=== PATIENT | male | born 1950 | race Caucasian/White ===

== ENCOUNTER 2017-04-25 03:20 | Inpatient (IN) | payer MEDICARE ==
[2017-04-25] VITALS (19 sets, daily range): BP systolic 101–159; BP diastolic 55–96; PULSE 76–132; RESP 17–36; TEMP 97.1–98.7; O2SAT 97–100
[~2017-04-25] VITALS: Ht 177.8 cm; Wt 75.0 kg
[~2017-04-25 03:20] MED LIST: ARIP20 PO; ASPI325T PO; DOCU1CAP39 PO; ENOX30P SQ; FOLI1 PO; GABA100C4 PO; HUMALOGP SQ; LANTUS2P SQ; LISI-357 PO; LORTA5 PO; MAPA325T6 PO; METF500 PO; METO25 PO; POLY119S PO; THIA100T PO; TRAZ50TA4 PO
[2017-04-25] MEDS ORDERED: ONDANSETRON HCL 4 MG/2 ML VIAL IV ONE (03:45)
[2017-04-25] MEDS ORDERED: POTASSIUM CHLOR 40 MEQ PREMIX 100 ML IV PRN ×4 (03:45→05:30)
[2017-04-25] MEDS ORDERED: POTASSIUM CHLOR 20 MEQ PREMIX 100 ML IV PRN ×11 (03:45→05:30)
[2017-04-25] MEDS ORDERED: SODIUM CHLOR 0.9% 1000 ML INJ 1,000 ML IV ONE ×2 (03:45)
[2017-04-25] MEDS ORDERED: INSULIN REGULAR (IV INFUSION) 100 UNITS in SODIUM CHLORIDE 0.9% INJ 99 ML IV PRN ×2 (03:45→05:30)
[2017-04-25] MEDS ORDERED: SODIUM BICARBONATE 8.4% SOLN 50 MEQ/50 ML VIAL IV PUSH PRN ×4 (03:45→05:30)
[2017-04-25] MEDS ORDERED: INSULIN HUMAN REGULAR 1,000 UNITS/10 ML VIAL IV PUSH ONE (03:45)
[2017-04-25] MEDS ORDERED: SODIUM PHOSPHATE INJ 15 MMOL in SODIUM CHLORIDE 0.9% INJ 100 ML IV PRN ×2 (03:45→05:30)
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
[2017-04-25] MEDS: SODIUM CHLOR 0.9% 1000 ML INJ 1,000 ML IV SCH ×4 (03:50→14:29)
[2017-04-25] MEDS ORDERED: CALCIUM GLUCONATE INJ 1 GM in SODIUM CHLORIDE 0.9% INJ 100 ML IV ONE (04:00)
[2017-04-25 04:02] LABS: ALBUMIN 2.7 GM/DL (3.4-5.0); ALT (GPT) 41 U/L (12-78); AST (GOT) 39 U/L (15-37); BICARBONATE 5.2 MEQ/L (21.0-32.0); BLOOD UREA NITROGEN 25 MG/DL (7-18); CALCIUM 8.5 MG/DL (8.5-10.1); CHLORIDE 91 MEQ/L (98-107); CREATININE 1.93 MG/DL (0.60-1.30); GLOMERULAR FILTRATION RATE 35 ML/MIN (>89); MAGNESIUM 1.9 MG/DL (1.5-2.5); SODIUM (NA) 133 MEQ/L (136-145)
[2017-04-25 04:03] LABS: AUTOMATED NEUTROPHIL # 18.4 TH/MM3 (1.8-7.7); BASOPHIL # 0.1 TH/MM3 (0-0.2); BASOPHIL % 0.5 % (0.0-2.0); EOSINOPHIL # 0.1 TH/MM3 (0-0.4); EOSINOPHIL % 0.4 % (0.0-4.0); HEMOGLOBIN 11.9 GM/DL (13.0-17.0); LYMPH % 6.3 % (9.0-44.0); LYMPHOCYTE # 1.3 TH/MM3 (1.0-4.8); MEAN CELL VOLUME 109.6 FL (80.0-100.0); MEAN CORPUSCULAR HEMOGLOBIN 32.5 PG (27.0-34.0); MEAN CORPUSCULAR HGB CONC 29.6 % (32.0-36.0); MEAN PLATELET VOLUME 8.6 FL (7.0-11.0); MONO % 3.3 % (0.0-8.0); MONOCYTE # 0.7 TH/MM3 (0-0.9); NEUT % 89.5 % (16.0-70.0); PLATELET COUNT 264 TH/MM3 (150-450); RED BLOOD COUNT 3.65 MIL/MM3 (4.50-5.90); RED CELL DISTRIBUTION WIDTH 18.3 % (11.6-17.2); WHITE BLOOD COUNT 20.5 TH/MM3 (4.0-11.0)
[2017-04-25 04:13] LABS: ALKALINE PHOSPHATASE 103 U/L (45-117); TOTAL PROTEIN 6.2 GM/DL (6.4-8.2); TROPONIN I 0.03 NG/ML (0.02-0.05)
[2017-04-25 04:22] LABS: GLUCOSE,RANDOM 709 MG/DL (74-106)
[2017-04-25 04:37] LABS: BACTERIA, URINE OCC /hpf; BILIRUBIN, URINE NEG (NEG); BLOOD, URINE NEG (NEG); GLUCOSE,URINE 1000 mg/dL (NEG); HYALINE CAST, URINE 3 /lpf (RARE); KETONE, URINE 80 mg/dL (NEG); MUCUS URINE FEW /lpf (OCC); NITRITE,URINE NEG (NEG); URINE COLOR LIGHT-YELLOW (YELLW/STRAW); URINE LEUKOCYTE ESTERASE NEG (NEG)
--- NOTE | 2017-04-25 04:44 | RADRPT ---
EXAM DATE/TIME: 04/25/2017 04:01 [facility] COMPARISON: CHEST SINGLE AP, July 05, 2015, 5:50. INDICATIONS : Short of breath. MEDICAL HISTORY : Hepatitis C. Diabetes mellitus type II. SURGICAL HISTORY : None. ENCOUNTER: Initial ACUITY: 1 day PAIN SCORE: 0/10 LOCATION: Bilateral chest FINDINGS: A single view of the chest demonstrates the lungs to be symmetrically aerated without evidence of mas s, infiltrate or effusion. Incidental note of azygous lobe. The cardiomediastinal contours are unre markable. No tortuosity of the descending thoracic aorta. Cervical hardware plate. Stable deformit y left shoulder and upper lateral left ribs. CONCLUSION: The lungs are clear. Suhail Yin MD on April 25, 2017 at 4:42 Board Certified Radiologist. This report was verified electronically.
[2017-04-25] MEDS ORDERED: PIPERACIL-TAZO 3.375 GM PREMIX 50 ML IV ONE (05:00)
[2017-04-25] MEDS ORDERED: VANCOMYCIN INJ 1,000 MG in SODIUM CHLOR 0.9% 250 ML INJ 250 ML IV ONE (05:00)
[2017-04-25] MEDS ORDERED: SODIUM CHLOR 0.9% 1000 ML INJ 1,000 ML IV SCH (05:29)
[2017-04-25] MEDS ORDERED: DEXT 5%-NACL 0.9% 1000 ML INJ 1,000 ML IV SCH (05:29)
[2017-04-25] MEDS ORDERED: CHLORHEXIDINE GLUCONATE 2 % 1 PACK (2 CLOTHS) TOP PRN (05:30)
[2017-04-25] MEDS ORDERED: SENNOSIDES 8.6 MG TAB PO PRN (05:30)
[2017-04-25] MEDS ORDERED: ACETAMINOPHEN 325 MG TAB PO PRN ×2 (05:30)
[2017-04-25] MEDS ORDERED: LACTULOSE SYRUP 20 GM/30 ML CUP PO PRN (05:30)
[2017-04-25] MEDS ORDERED: SODIUM CHLORIDE 0.9% FLUSH 10 ML FLUSH IV FLUSH PRN (05:30)
[2017-04-25] MEDS ORDERED: RESP: ALBUTEROL 2.5 MG/IPRATROPIUM 0.5 MG NEB (PRN) INH (05:30)
[2017-04-25] MEDS ORDERED: MISCELLANEOUS NURSING INFORMATION XX SCH (05:30)
[2017-04-25] MEDS ORDERED: MAGNESIUM HYDROXIDE SUSP 30 ML CUP PO PRN (05:30)
[2017-04-25] MEDS ORDERED: BISACODYL 10 MG SUPP RECTAL PRN (05:30)
--- NOTE | 2017-04-25 05:41 | HHI.HP ---
HPI Service Critical Care Medicine Primary Care Physician Jean-Claude Reed, DO Admission Diagnosis DKA, leukocytosis Diagnosis: Travel History International Travel<30 Days: No Contact w/Intl Traveler <30 Da: No Traveled to Known Affected Are: No History of Present Illness 67 year old male presents with a history altered mentation noted at 2 AM by the [facility]pc staff when they went to check his blood sugar. The patient's blood sugar was noted to be critically high. They administered 10 units of insulin subcutaneously and called the physician commercial solar sales consultant. Given the patient's altered mentation he recommended that the patient be taken to the emergency department. Upon ambulance services arrival the patient was noted to be tachypneic with a critically high blood sugar. The patient was noted to have an end-tidal CO2 between 8 and 10. The patient's heart rate was noted to be 280 and he appeared to be and ventricular tachycardia. The patient spontaneously converted to a sinus rhythm. The patient continues to be altered. The initial workup in the emergency department show severe DKA and the patient is admitted to ICU. Review of Systems ROS Unable to obtain due to altered mental status Past Family Social History Allergies: Coded Allergies: No Known Allergies (Verified Allergy, Unknown, 04/25/17) Past Medical History Hypertension Diabetes History of subdural hemorrhage and subarachnoid hemorrhagein 2012 History of hepatitis Creports this was treated more than 10 years ago Past Surgical History Left femoral fracture IM rods Left knee surgery Halo placement: C6-C7 fracture subluxation with spinal cord injurystatus post anterior and posterior decompression and fusion Anterior cervical C5 to C6, and C6 to C7 ventral epidural hemorrhage evacuation Removal of anterior C5 to C7 cervical plate with replacement Removal of C5 to C6 and C6 to C7 interbody cages with replacement Reported Medications Reported Meds & Active Scripts Active [place] 5-325 mg (Hydrocodone-Acetaminophen 5-325 mg) 1 Tab 1 Tab PO Q8 PRN Trazodone Hcl (Trazodone HCl) 50 Mg Tab 50 Mg PO HS Abilify 20 mg (Aripiprazole) 20 Mg Tab 20 Mg PO HS 30 Days Metoprolol Tartrate 25 mg (Metoprolol Tartrate) 25 Mg Tab 25 Mg PO Q12HR 30 Days Lovenox (Enoxaparin Sodium) 30 Mg/0.3 Ml Inj 30 Mg SQ Q12H 30 Days Aspirin 325 Mg Tab (Aspirin) 325 Mg Tab 325 Mg PO DAILY 30 Days Reported Glucophage 500 mg (Metformin HCl) 500 Mg Tab 500 Mg PO BIDPC Mapap (Acetaminophen) 325 Mg Tab 650 Mg PO Q6H PRN Thiamine HCl 100 Mg Tab 100 Mg PO DAILY Miralax 119 Gm Bottle (Polyethylene Glycol) 119 Gm Powd 17 Gm PO DAILY 17 GRAMS = 1 TABLESPOON DISSOLVED IN 4 TO 8 [place] Lisinopril 5 mg (Lisinopril) 5 Mg Tab 5 Mg PO BID Humalog Insulin Supplemental Scale (Insulin Human Lispro) 100 Units/Ml Inj Unknown Dose SQ TIDACHS Low Dose Lispro Insulin Sliding Scale = Max dose at bedtime:( )units; Max dose at 3am:( ); blood sugars less than 70 take zero insulin units; blood sugars 150-199 take 1 unit; blood sugars 200-249 take 3 units; blood sugars 250-299 take 5 units; blood sugars 300-349 take 7 units; blood sugars greater than 349 take 9 units Lantus (Insulin Glargine) 100 Units/Ml Inj 27 Unit SQ DAILY Gabapentin 100 Mg Cap 200 Mg PO TID Folate 1 Mg Tab (Folic Acid) 1 Mg Tab 1 Mg PO DAILY Colace 100 Mg Cap (Docusate Sodium) 100 Mg Cap 100 Mg PO BID Active Ordered Medications Current Medications Medications (Trade) Dose Ordered Sig/Heri Route PRN Reason Start Time Stop Time Status Last Admin Dose Admin Sodium Chloride 1,000 ml @ 250 mls/hr Q4H IV 04/25/17 03:45 04/25/17 03:50 Dextrose/Sodium Chloride 1,000 ml @ 200 mls/hr Q5H IV 04/25/17 03:45 Insulin Human Regular 100 units/ Sodium Chloride 100 ml @ 6.5 mls/hr TITRATE PRN IV Blood Sugar Management 04/25/17 03:45 Potassium Chloride 100 ml @ 100 mls/hr Q1H PRN IV SEE LABEL COMMENTS 04/25/17 03:45 Potassium Chloride 100 ml @ 50 mls/hr Q2H PRN IV SEE LABEL COMMENTS 04/25/17 03:45 Potassium Chloride 100 ml @ 100 mls/hr Q1H PRN IV SEE LABEL COMMENTS 04/25/17 03:45 Potassium Chloride 100 ml @ 100 mls/hr Q1H PRN IV SEE LABEL COMMENTS 04/25/17 03:45 Potassium Chloride 100 ml @ 50 mls/hr Q2H PRN IV SEE LABEL COMMENTS 04/25/17 03:45 Potassium Chloride 100 ml @ 50 mls/hr Q2H PRN IV SEE LABEL COMMENTS 04/25/17 03:45 Potassium Chloride 100 ml @ 50 mls/hr Q2H PRN IV SEE LABEL COMMENTS 04/25/17 03:45 Potassium Chloride 100 ml @ 50 mls/hr Q2H PRN IV SEE LABEL COMMENTS 04/25/17 03:45 Sodium Bicarbonate (Sodium Bicarbonate 8.4% Inj) 100 meq UNSCH PRN IV PUSH SEE LABEL COMMENTS 04/25/17 03:45 Sodium Bicarbonate (Sodium Bicarbonate 8.4% Inj) 50 meq UNSCH PRN IV PUSH SEE LABEL COMMENTS 04/25/17 03:45 Sodium Phosphate 15 mmol/Sodium Chloride 105 ml @ 25 mls/hr UNSCH PRN IV SEE LABEL COMMENTS 04/25/17 03:45 Vancomycin HCl 1000 mg/Sodium Chloride 250 ml @ 250 mls/hr ONCE ONCE IV 04/25/17 05:00 04/25/17 05:59 Acetaminophen (Tylenol) 650 mg Q6H PRN PO MILD PAIN 04/25/17 05:30 UNV Aripiprazole (Abilify) 20 mg HS PO 04/25/17 21:00 UNV Aspirin (Aspirin) 325 mg DAILY PO 04/25/17 09:00 UNV Enoxaparin Sodium (Lovenox Inj) 30 mg Q12H SQ 04/25/17 05:30 UNV Folic Acid (Folate) 1 mg DAILY PO 04/25/17 09:00 UNV Gabapentin (Neurontin) 200 mg TID PO 04/25/17 09:00 UNV Metoprolol Tartrate (Lopressor) 25 mg Q12HR PO 04/25/17 09:00 UNV Thiamine HCl (Vitamin B1) 100 mg DAILY PO 04/25/17 09:00 UNV Trazodone HCl (Desyrel) 50 mg HS PO 04/25/17 21:00 UNV Sodium Chloride (NS Flush) 2 ml UNSCH PRN IV FLUSH FLUSH AFTER USING IV ACCESS 04/25/17 05:30 UNV Sodium Chloride (NS Flush) 2 ml BID IV FLUSH 04/25/17 09:00 UNV Acetaminophen (Tylenol) 650 mg Q6H PRN PO PAIN 1-5 AND/OR FEVER >101F 04/25/17 05:30 UNV Morphine Sulfate (Morphine Inj) 2 mg Q2H PRN IV PUSH PAIN SCALE 6 TO 10 04/25/17 05:30 UNV Famotidine (Pepcid Inj) 20 mg Q12HR IV PUSH 04/25/17 09:00 UNV Temazepam (Restoril) 15 mg HS PRN PO INSOMNIA 04/25/17 05:30 UNV Albuterol/ Ipratropium (Duoneb Neb) 1 ampule Q2HR NEB PRN INH WHEEZING 04/25/17 05:30 UNV Miscellaneous Information 1 Q361D XX 04/25/17 05:30 UNV Chlorhexidine Gluconate (Chlorhexidine 2% Cloth) 3 pack Taper DAILY@04 TOP 04/26/17 04:00 04/22/18 03:59 UNV Chlorhexidine Gluconate (Chlorhexidine 2% Cloth) 3 pack UNSCH PRN TOP HYGIENIC CARE 04/25/17 05:30 UNV Senna/Docusate Sodium (Araceli-Colace) 1 tab BID PO 04/25/17 09:00 UNV Magnesium Hydroxide (Milk Of Magnesia Liq) 30 ml Q12H PRN PO Mild constipation 04/25/17 05:30 UNV Sennosides (Senokot) 17.2 mg Q12H PRN PO Moderate constipation 04/25/17 05:30 UNV Bisacodyl (Dulcolax Supp) 10 mg DAILY PRN RECTAL SEVERE CONSITIPATION 04/25/17 05:30 UNV Lactulose (Lactulose Liq) 30 ml DAILY PRN PO SEVERE CONSITIPATION 04/25/17 05:30 UNV Sodium Chloride 1,000 ml @ 250 mls/hr Q4H IV 04/25/17 05:29 UNV Dextrose/Sodium Chloride 1,000 ml @ 200 mls/hr Q5H IV 04/25/17 05:29 UNV Insulin Human Regular 100 units/ Sodium Chloride 100 ml @ 6.5 mls/hr TITRATE PRN IV Blood Glucose Control 04/25/17 05:30 UNV Potassium Chloride 100 ml @ 100 mls/hr Q1H PRN IV SEE LABEL COMMENTS 04/25/17 05:30 UNV Potassium Chloride 100 ml @ 50 mls/hr Q2H PRN IV SEE LABEL COMMENTS 04/25/17 05:30 UNV Potassium Chloride 100 ml @ 100 mls/hr Q1H PRN IV SEE LABEL COMMENTS 04/25/17 05:30 UNV Potassium Chloride 100 ml @ 100 mls/hr Q1H PRN IV SEE LABEL COMMENTS 04/25/17 05:30 UNV Potassium Chloride 100 ml @ 50 mls/hr Q2H PRN IV SEE LABEL COMMENTS 04/25/17 05:30 UNV Potassium Chloride 100 ml @ 50 mls/hr Q2H PRN IV SEE LABEL COMMENTS 04/25/17 05:30 UNV Potassium Chloride 100 ml @ 50 mls/hr Q2H PRN IV SEE LABEL COMMENTS 04/25/17 05:30 UNV Potassium Chloride 100 ml @ 50 mls/hr Q2H PRN IV SEE LABEL COMMENTS 04/25/17 05:30 UNV Sodium Bicarbonate (Sodium Bicarbonate 8.4% Inj) 100 meq UNSCH PRN IV PUSH SEE LABEL COMMENTS 04/25/17 05:30 UNV Sodium Bicarbonate (Sodium Bicarbonate 8.4% Inj) 50 meq UNSCH PRN IV PUSH SEE LABEL COMMENTS 04/25/17 05:30 UNV Sodium Phosphate 15 mmol/Sodium Chloride 105 ml @ 25 mls/hr UNSCH PRN IV SEE LABEL COMMENTS 04/25/17 05:30 UNV Family History No family history significant for coronary artery disease or malignancy Social History Denies smoking/alcohol abuse/drug abuse. Physical Exam Vital Signs Vital Signs Date Time Temp Pulse Resp B/P (MAP) Pulse Ox O2 Delivery O2 Flow Rate FiO2 04/25/17 03:40 126 30 159/74 (102) 100 Room Air 04/25/17 03:30 129 30 157/87 (110) 100 Room Air 04/25/17 03:24 125 33 143/96 (112) 100 Physical Exam GENERAL: Well-nourished, well-developed patient. SKIN: Warm and dry. HEAD: Normocephalic. EYES: No scleral icterus. No injection or drainage. NECK: Supple, trachea midline. No JVD or lymphadenopathy. CARDIOVASCULAR: Regular rate and rhythm without murmurs, gallops, or rubs. RESPIRATORY: Breath sounds equal bilaterally. No accessory muscle use. GASTROINTESTINAL: Abdomen soft, non-tender, nondistended. MUSCULOSKELETAL: No cyanosis, or edema. BACK: Large sacral decubitus wound. NEURO EXAM: The patient is confused on examination. He has difficulty following simple commands like opening his mouth. He is spontaneously moving all extremities equally with 5/5 strength. The patient is oriented to to his name only. Laboratory Laboratory Tests Test 04/25/17 03:20 04/25/17 03:30 04/25/17 03:45 04/25/17 04:06 Blood Gas Puncture Site IV Blood Gas Patient Temperature 98.6 Venous Blood pH 7.06 Venous Blood Partial Pressure CO2 14 Venous Blood Partial Pressure O2 43 Venous Blood HCO3 4 Venous Blood Oxygen Saturation 51 Venous Blood Oxygen Content 8.2 Venous Blood Base Excess -24.8 Oxygen Delivery Device ROOM AIR Blood Gas Inspired Oxygen 21 Bedside Hemoglobin 12.2 Bedside Hematocrit 36.0 Bedside Sodium 129 Blood Urea Nitrogen 25 Creatinine 1.93 Random Glucose 709 Total Protein 6.2 Albumin 2.7 Calcium Level 8.5 Magnesium Level 1.9 Alkaline Phosphatase 103 Aspartate Amino Transf (AST/SGOT) 39 Alanine Aminotransferase (ALT/SGPT) 41 Total Bilirubin 1.0 Sodium Level 133 Potassium Level 6.0 Chloride Level 91 Carbon Dioxide Level 5.2 Bedside Potassium 5.9 Bedside Chloride 99 Anion Gap 37 Bedside Blood Urea Nitrogen 25 Bedside Creatinine 1.4 Estimat Glomerular Filtration Rate 35 Bedside Glucose GREATER THAN 700 Total Creatine Kinase 286 Creatine Kinase MB 8.6 Troponin I 0.03 B-Hydroxybutyrate 10.31 White Blood Count 20.5 Red Blood Count 3.65 Hemoglobin 11.9 Hematocrit 40.0 Mean Corpuscular Volume 109.6 Mean Corpuscular Hemoglobin 32.5 Mean Corpuscular Hemoglobin Concent 29.6 Red Cell Distribution Width 18.3 Platelet Count 264 Mean Platelet Volume 8.6 Neutrophils (%) (Auto) 89.5 Lymphocytes (%) (Auto) 6.3 Monocytes (%) (Auto) 3.3 Eosinophils (%) (Auto) 0.4 Basophils (%) (Auto) 0.5 Neutrophils # (Auto) 18.4 Lymphocytes # (Auto) 1.3 Monocytes # (Auto) 0.7 Eosinophils # (Auto) 0.1 Basophils # (Auto) 0.1 CBC Comment AUTO DIFF Differential Comment AUTO DIFF CONFIRMED B-Type Natriuretic Peptide 438 Urine Color LIGHT-YELLOW Urine Turbidity CLEAR Urine pH 5.0 Urine Specific [place] 1.013 Urine Protein NEG Urine Glucose (UA) 1000 Urine Ketones 80 Urine Occult Blood NEG Urine Nitrite NEG Urine Bilirubin NEG Urine Urobilinogen LESS THAN 2.0 Urine Leukocyte Esterase NEG Urine RBC 1 Urine WBC 1 Urine Bacteria OCC Urine Hyaline Casts 3 Urine Mucus FEW Microscopic Urinalysis Comment CULT NOT INDICATED Result Diagram: 04/25/17 0345 04/25/17329 Imaging Last 24 hours Impressions Chest X-Ray 04/25/17332 Signed Impressions: Service Date/Time: Tuesday, April 25, 2017 04:01 - CONCLUSION: The lungs are clear. MD Ad Cuevas VTE Risk Assessment Caprini VTE Risk Assessment: Mod/High Risk (score >= 2) Caprini Risk Assessment Model Point Value = 1 Point Value = 2 Point Value = 3 Point Value = 5 Age 41-60 Minor surgery BMI > 25 kg/m2 Swollen legs Varicose veins or History of unexplained or recurrent spontaneous Oral contraceptives or hormone replacement Sepsis (< 1 month) Serious lung disease, including pneumonia (< 1 month) Abnormal pulmonary function Acute myocardial infarction Congestive heart failure (< 1 month) History of inflammatory bowel disease Medical patient at bed rest Age 61-74 Arthroscopic surgery Major open surgery (> 45 min) Laparoscopic surgery (> 45 min) Malignancy Confined to bed (> 72 hours) Immobilizing plaster cast Central venous access Age >= 75 History of VTE Family history of VTE Factor V Leiden Prothrombin [id number] Lupus anticoagulant Anticardiolipin antibodies Elevated serum homocysteine Heparin-induced thrombocytopenia Other congenital or acquired thrombophilia Stroke (< 1 month) Elective arthroplasty Hip, pelvis, or leg fracture Acute spinal cord injury (< 1 month) Prophylaxis Regimen Total Risk Factor Score Risk Level Prophylaxis Regimen 0-1 Low Early ambulation 2 Moderate Order ONE of the following: *Sequential Compression Device (SCD) *Heparin 5000 units SQ BID 3-4 Higher Order ONE of the following medications: *Heparin 5000 units SQ TID *Enoxaparin/Lovenox 40 mg SQ daily (WT < 150 kg, CrCl > 30 mL/min) *Enoxaparin/Lovenox 30 mg SQ daily (WT < 150 kg, CrCl > 10-29 mL/min) *Enoxaparin/Lovenox 30 mg SQ BID (WT < 150 kg, CrCl > 30 mL/min) AND/OR *Sequential Compression Device (SCD) 5 or more Highest Order ONE of the following medications: *Heparin 5000 units SQ TID (Preferred with Epidurals) *Enoxaparin/Lovenox 40 mg SQ daily (WT < 150 kg, CrCl > 30 mL/min) *Enoxaparin/Lovenox 30 mg SQ daily (WT < 150 kg, CrCl > 10-29 mL/min) *Enoxaparin/Lovenox 30 mg SQ BID (WT < 150 kg, CrCl > 30 mL/min) AND *Sequential Compression Device (SCD) Assessment and Plan Assessment and Plan DKA - IV insulin per protocol - Series chemistry profile - Potassium replacement - Sodium bicarbonate when necessary - Panculture - CXR negative - Series of troponins and EKGs Hypertension - Metoprolol - Hold lisinopril due to acute kidney injury Acute Renal failure - IV hydration - Monitor creatinine and electrolytes level - Strict I's and O's - CT abdomen pelvis pending - consider ultrasound of kidneys based on results Sacral Decubitus - Wound care consult DVT GI prophylaxis - Teds SCDs - Subcutaneous heparin - Pepcid Critical Care: The total critical care time was 35 minutes. Time to perform other separately billable procedures was not included in the critical care time. Basim Causey MD Apr 25, 2017 05:41 Alfredo Craig MD Apr 25, 2017 09:00
--- NOTE | 2017-04-25 06:22 | RADRPT ---
EXAM DATE/TIME: 04/25/2017 05:44 [facility] COMPARISON: No previous studies available for comparison. INDICATIONS : Abdomen pain. ORAL CONTRAST: No oral contrast ingested. RADIATION DOSE: 10.21 CTDIvol (mGy) MEDICAL HISTORY : Cardiovascular disease. Hypertension. UTI; Liver disease. SURGICAL HISTORY : None. ENCOUNTER: Initial ACUITY: 1 day PAIN SCALE: 3/10 LOCATION: Bilateral abdomen TECHNIQUE: Volumetric scanning of the abdomen and pelvis was performed. Using automated exposure control and ad justment of the mA and/or kV according to patient size, radiation dose was kept as low as reasonably achievable to obtain optimal diagnostic quality images. DICOM format image data is available electro nically for review and comparison. FINDINGS: There is motion degradation of the upper abdominal images. The study is still of diagnostic quality. There is a tiny right pleural effusion measuring 1.2 cm. Moderate amount of ascites in the upper a bdomen, tracking down the paracolic gutters bilaterally and with a moderate amount of fluid in the pe lvis. No dilated loops of small or large bowel. The liver, gallbladder, spleen, kidneys, pancreas, adrenal glands, and aorta are unremarkable for noncontrast technique. Small catheter within the urin melvina bladder. Osseous structures are grossly intact. Left femoral intramedullary merline and intratrocha nteric nail. CONCLUSION: Moderate amount of ascites in the abdomen and pelvis and tiny right pleural effusion. Suhail Yin MD on April 25, 2017 at 6:18 Board Certified Radiologist. This report was verified electronically.
[2017-04-25 07:29] LABS: LACTIC ACID SEPSIS PROTOCOL 10.7 mmol/L (0.4-2.0)
[2017-04-25 08:39] LABS: INTERNATIONAL NORMALIZED RATIO 1.3 RATIO; PROTHROMBIN TIME - PATIENT 13.1 SEC (9.8-11.6)
[2017-04-25] MEDS: DEXT 5%-NACL 0.9% 1000 ML INJ 1,000 ML IV SCH ×3 (08:43→18:49)
--- NOTE | 2017-04-25 08:44 | EKG ---
Date Performed: 04/25/2017 Time Performed: 03:31:32 PTAGE: 67 years EKG: SINUS TACHYCARDIA WITH FIRST DEGREE AV BLOCK BASELINE ARTEFACT ABNORMAL ECG NO PREVIOUS TRACING DOCTOR: Sreekanth Herring Interpretating Date/Time 04/25/2017 08:25:23
[2017-04-25] MEDS ORDERED: SODIUM CHLORIDE 0.9% FLUSH 10 ML FLUSH IV FLUSH SCH (09:00)
[2017-04-25] MEDS: GABAPENTIN 100 MG CAP PO SCH ×3 (09:22→18:50)
[2017-04-25] MEDS: METOPROLOL TARTRATE 25 MG TAB PO SCH ×2 (09:23→23:00)
[2017-04-25] MEDS: ASPIRIN 325 MG TAB PO SCH (09:23)
[2017-04-25] MEDS: FOLIC ACID 1 MG TAB PO SCH (09:23)
[2017-04-25] MEDS: THIAMINE HCL 100 MG TAB PO SCH (09:23)
[2017-04-25] MEDS: DOCUSATE SODIUM 50 MG/SENNA 8.6 MG TAB PO SCH ×2 (09:23→23:00)
[2017-04-25] MEDS: ENOXAPARIN SODIUM 30 MG/0.3 ML SYRINGE SQ SCH ×2 (09:23→22:30)
[2017-04-25] MEDS: FAMOTIDINE 20 MG/2 ML VIAL IV PUSH SCH ×2 (09:24→20:59)
[2017-04-25 12:03] LABS: CALCIUM 8.3 MG/DL (8.5-10.1); CREATININE 1.65 MG/DL (0.60-1.30); MAGNESIUM 1.7 MG/DL (1.5-2.5); PHOSPHORUS 2.1 MG/DL (2.5-4.9)
[2017-04-25] MEDS: POTASSIUM CHLOR 20 MEQ PREMIX 100 ML IV PRN ×2 (12:25→14:35)
[2017-04-25 14:07] LABS: BICARBONATE 22.1 MEQ/L (21.0-32.0); CREATININE 1.63 MG/DL (0.60-1.30); MAGNESIUM 1.7 MG/DL (1.5-2.5)
--- NOTE | 2017-04-25 14:37 | EKG ---
Date Performed: 04/25/2017 Time Performed: 12:44:22 PTAGE: 67 years EKG: Sinus rhythm NORMAL ECG PREVIOUS TRACING : 04/25/2017 03.31 Compared to previous tracing, heart rate has decreased. DOCTOR: Sreekanth Herring Interpretating Date/Time 04/25/2017 14:37:06
[2017-04-25 17:04] LABS: BICARBONATE 27.2 MEQ/L (21.0-32.0); BLOOD UREA NITROGEN 21 MG/DL (7-18); CALCIUM 7.5 MG/DL (8.5-10.1); CHLORIDE 108 MEQ/L (98-107); GLOMERULAR FILTRATION RATE 60 ML/MIN (>89); GLUCOSE,RANDOM 146 MG/DL (74-106); MAGNESIUM 1.5 MG/DL (1.5-2.5); PHOSPHORUS 1.5 MG/DL (2.5-4.9); SODIUM (NA) 143 MEQ/L (136-145)
[2017-04-25 17:14] LABS: CALCIUM 7.5 MG/DL (8.5-10.1); CREATININE 1.21 MG/DL (0.60-1.30); MAGNESIUM 1.5 MG/DL (1.5-2.5); PHOSPHORUS 1.5 MG/DL (2.5-4.9)
--- NOTE | 2017-04-25 19:38 | HHI.CCPN ---
Subjective Remarks/Hospital Course 67 year old male presents with a history altered mentation noted at 2 AM by the alf staff when they went to check his blood sugar. The patient's blood sugar was noted to be critically high. They administered 10 units of insulin subcutaneously and called the physician exceptional children teacher. Given the patient's altered mentation he recommended that the patient be taken to the emergency department. Upon ambulance services arrival the patient was noted to be tachypneic with a critically high blood sugar. The patient was noted to have an end-tidal CO2 between 8 and 10. The patient's heart rate was noted to be 280 and he appeared to be and ventricular tachycardia. The patient spontaneously converted to a sinus rhythm. The patient continues to be altered. The initial workup in the emergency department show severe DKA and the patient is admitted to ICU. 04/25 1930 hours: Bicarb corrected, gap closed, glucose controlled. D/C insulin gtt, d/c D5 iv fluid. Start levemir hs, feed CC diet. Add SSI. Objective Vital Signs Date Time Temp Pulse Resp B/P (MAP) Pulse Ox O2 Delivery O2 Flow Rate FiO2 04/25/17 14:32 98 Room Air 04/25/17 14:00 79 04/25/17 12:00 98.0 17 116/61 (79) 04/25/17 07:36 2.00 Intake and Output 04/25/17 04/25/17 04/26/17 08:00 16:00 00:00 Intake Total 2480 ml 1300 ml Balance 2480 ml 1300 ml Result Diagram: 04/25/17 0345 04/25/17 1546 Other Results Laboratory Tests Test 04/25/17 03:20 Blood Gas Puncture Site IV Blood Gas Patient Temperature 98.6 Venous Blood pH 7.06 (7.360-7.400) Venous Blood Partial Pressure CO2 14 mmHg (44-48) Venous Blood Partial Pressure O2 43 mmHg (35-40) Venous Blood HCO3 4 mmol/L (22-26) Venous Blood Oxygen Saturation 51 % (70-76) Venous Blood Oxygen Content 8.2 Vol % (9.0-17.0) Venous Blood Base Excess -24.8 mmol/L (-2-2) Oxygen Delivery Device ROOM AIR Blood Gas Inspired Oxygen 21 % Imaging Last 24 hours Impressions Chest X-Ray 04/25/17 0333 Signed Impressions: Service Date/Time: Tuesday, April 25, 2017 04:01 - CONCLUSION: The lungs are clear. Suhail Yin MD Objective Remarks GENERAL: Elderly, frail patient. SKIN: Warm and dry. HEAD: Normocephalic. EYES: No scleral icterus. No injection or drainage. NECK: Supple, trachea midline. CARDIOVASCULAR: Regular rate and rhythm without murmurs, gallops, or rubs. RESPIRATORY: Breath sounds equal bilaterally. No accessory muscle use. GASTROINTESTINAL: Abdomen soft, non-tender, nondistended. BS active MUSCULOSKELETAL: No cyanosis, or edema. Well perfused. BACK: Large sacral decubitus wound. NEURO EXAM: Conversant. Alert. He is spontaneously moving all extremities equally with 5/5 strength. The patient is oriented to to his name only. A/P Assessment and Plan DKA - IV insulin per protocol -> convert to levemir and SSI - Series chemistry profile - Potassium replacement - Sodium bicarbonate when necessary - Panculture - CXR negative - Series of troponins and EKGs Hypertension - Metoprolol - Hold lisinopril due to acute kidney injury Acute Renal failure - IV hydration - Monitor creatinine and electrolytes level - Strict I's and O's - CT abdomen pelvis pending - consider ultrasound of kidneys based on results Sacral Decubitus - Wound care consult DVT GI prophylaxis - Teds SCDs - Subcutaneous heparin - Pepcid Overall impression: DKA resolved. Hungry. Feed. Have wound care nurse evaluate sacral decubitus and make recommendations. Try to get back to SNF. Alfredo Craig MD Apr 25, 2017 19:38
[2017-04-25] MEDS ORDERED: GLUCAGON 1 MG/ML VIAL OTHER PRN (19:45)
[2017-04-25] MEDS ORDERED: DEXTROSE 50% IN WATER 50 ML VIAL(D50) IV PUSH PRN (19:45)
[2017-04-25] MEDS: MORPHINE SULFATE 2 MG/ML INJ IV PUSH PRN ×2 (20:59→23:00)
[2017-04-25] MEDS: INSULIN DETEMIR 100 UNITS/ML VIAL SQ SCH ×2 (21:00→22:31)
[2017-04-25] MEDS: NS + KCL 20 MEQ INJ 1,000 ML IV SCH (21:00)
[2017-04-25] MEDS ORDERED: TEMAZEPAM 15 MG CAP PO PRN (21:00)
[2017-04-25] MEDS: INSULIN ASPART SUPPLEMENTAL SCALE SQ SCH (22:31)
[2017-04-25 22:35] LABS: HEMOGLOBIN A1C 6.4 % (4.3-6.0)
[2017-04-25] MEDS: traZODone HCL 50 MG TAB PO SCH (23:00)
[2017-04-26] VITALS (11 sets, daily range): BP systolic 106–177; BP diastolic 56–99; PULSE 60–87; RESP 12–20; TEMP 97.2–98.3; O2SAT 94–97
[2017-04-26] LABS: BICARBONATE 18.7 MEQ/L (21.0-32.0); CALCIUM 7.9 MG/DL (8.5-10.1); CREATININE 1.1 MG/DL (0.60-1.30); MAGNESIUM 1.5 MG/DL (1.5-2.5); PHOSPHORUS 1.8 MG/DL (2.5-4.9)
[2017-04-26] MEDS: NS + KCL 20 MEQ INJ 1,000 ML IV SCH ×3 (02:10→08:50)
[2017-04-26] MEDS: MORPHINE SULFATE 2 MG/ML INJ IV PUSH PRN (03:53)
[2017-04-26] MEDS: CHLORHEXIDINE GLUCONATE 2 % 1 PACK (2 CLOTHS) TOP SCH (04:00)
[2017-04-26 06:18] LABS: INTERNATIONAL NORMALIZED RATIO 1.3 RATIO; PROTHROMBIN TIME - PATIENT 13.6 SEC (9.8-11.6)
[2017-04-26 06:32] LABS: ALBUMIN 1.8 GM/DL (3.4-5.0); ALKALINE PHOSPHATASE 74 U/L (45-117); ALT (GPT) 27 U/L (12-78); AST (GOT) 30 U/L (15-37); BICARBONATE 24.8 MEQ/L (21.0-32.0); BLOOD UREA NITROGEN 19 MG/DL (7-18); CALCIUM 7.5 MG/DL (8.5-10.1); CHLORIDE 108 MEQ/L (98-107); CREATININE 1.09 MG/DL (0.60-1.30); GLOMERULAR FILTRATION RATE 67 ML/MIN (>89); GLUCOSE,RANDOM 138 MG/DL (74-106); MAGNESIUM 1.6 MG/DL (1.5-2.5); PHOSPHORUS 1.6 MG/DL (2.5-4.9); SODIUM (NA) 141 MEQ/L (136-145); TOTAL BILIRUBIN ADULT 0.4 MG/DL (0.2-1.0); TOTAL PROTEIN 4.4 GM/DL (6.4-8.2)
[2017-04-26] MEDS: INSULIN ASPART SUPPLEMENTAL SCALE SQ SCH ×4 (08:00→21:00)
[2017-04-26] MEDS: FAMOTIDINE 20 MG/2 ML VIAL IV PUSH SCH (08:56)
[2017-04-26] MEDS: ENOXAPARIN SODIUM 30 MG/0.3 ML SYRINGE SQ SCH ×2 (08:56→20:00)
[2017-04-26] MEDS: DOCUSATE SODIUM 50 MG/SENNA 8.6 MG TAB PO SCH (08:57)
[2017-04-26] MEDS: THIAMINE HCL 100 MG TAB PO SCH (08:57)
[2017-04-26] MEDS: ASPIRIN 325 MG TAB PO SCH (08:57)
[2017-04-26] MEDS: METOPROLOL TARTRATE 25 MG TAB PO SCH (08:57)
[2017-04-26] MEDS: FOLIC ACID 1 MG TAB PO SCH (08:57)
[2017-04-26] MEDS: GABAPENTIN 100 MG CAP PO SCH ×3 (08:57→17:35)
[2017-04-26] MEDS: INSULIN DETEMIR 100 UNITS/ML VIAL SQ SCH ×2 (09:00→21:00)
--- NOTE | 2017-04-26 10:55 | PD.WCN.NOT ---
Wound Consult Description: Wound consult ordered by for chronic sacral wound Communicated with: Margarita MCDONALD [place], Dr.Samuel Funes Recommendation: 1. Reposition patient every 2 hours for comfort and offloading.Please do not use cotton underpads only UltraSorb moisture wicking. 2. Apply Santyl 2mm thick to wound base making contact with all open tissue.( DO NOT USE WOUND CLEANSER WITH SANTYL)Skin prep periwound 3. Cover with moisten gauze secure with ABD or boarder gauze change dressing daily or as needed for dislodgement/exudate. 4. Follow up with out patient wound center Additional Information: Patient was seen today on by administrative underwriter and Margarita JAVIER for assessment of chronic sacral wound.Patient alert and oriented x3 sitting in chair upon writers arrival.Patient required min assistance to transfer into bed.Patient was reposition to left side with assistance of Margairta MCDONALD.Dressing removed from sacral region to reveal a unstageable pressure injury measuring 9.6cm x 12.9cm x 0.3cm. Wound edges are even with wound base irregular in shape.Wound base extents from sacral region to upper bilateral buttocks.Wound base is ~65% adhered yellow slough ~25% pink non granular tissue ~10% beefy red granulation noted to 10 O'clock region of wound.moderate serosanguineous drainage noted to prior dressing with faint odor.Wound cleansed with normal saline pat dry moistened gauze applied to wound base and covered with boarder gauze till Santyl available Margarita MCDONALD will change dressing when Santyl arrives.Cotton underpad removed from under patient to reduce moister/heat.Patient tolerated wound care well.Patient was repositioned to left side with pillows for comfort/ offloading. Brennen Malloy [facility] Apr 26, 2017 10:55
[2017-04-26] MEDS: COLLAGENASE OINT 30 GM TUBE TOPICAL SCH (13:27)
--- NOTE | 2017-04-26 15:46 | HHI.PR ---
Subjective Remarks Patient is in good spirits today, says he feels fine. He states that he has had a few hospitalizations within recent weeks for DKA. Objective Vitals Vital Signs Date Time Temp Pulse Resp B/P (MAP) Pulse Ox O2 Delivery O2 Flow Rate FiO2 04/26/17 14:00 61 04/26/17 12:00 60 04/26/17 12:00 98.2 60 15 106/67 (80) 96 04/26/17 10:00 108/68 (81) 04/26/17 10:00 63 04/26/17 08:00 68 04/26/17 08:00 98.1 68 20 177/99 (125) 94 04/26/17 07:00 94 Room Air 04/26/17 06:00 67 04/26/17 04:00 63 04/26/17 04:00 98.2 63 12 129/60 (83) 97 04/26/17 03:58 11 04/26/17 02:00 73 04/26/17 00:00 87 04/26/17 00:00 98.0 83 14 110/56 (74) 94 04/25/17 22:00 87 04/25/17 20:00 98.2 78 18 133/62 (85) 97 04/25/17 20:00 78 04/25/17 19:00 97 Room Air 04/25/17 18:00 83 04/25/17 16:00 98.7 82 25 101/55 (70) 97 04/25/17 16:00 82 I/O 04/25/17 04/25/17 04/25/17 04/26/17 04/26/17 04/26/17 07:00 15:00 23:00 07:00 15:00 23:00 Intake Total 2190 ml 1710 ml 240 ml Output Total 600 ml 700 ml Balance 2190 ml 1110 ml -460 ml Intake Oral 360 ml 240 ml IV Total 2190 ml 1350 ml Output Urine Total 600 ml 700 ml # Bowel Movements 0 Result Diagram: 04/25/17 0345 04/26/17 0531 Objective Remarks GENERAL: Well-nourished, well-developed patient. SKIN: Sacral wound examined by wound care nurse HEAD: Normocephalic. EYES: No scleral icterus. No injection or drainage. NECK: Supple, trachea midline. No JVD or lymphadenopathy. CARDIOVASCULAR: Regular rate and rhythm without murmurs, gallops, or rubs. RESPIRATORY: Breath sounds equal bilaterally. No accessory muscle use. GASTROINTESTINAL: Abdomen soft, non-tender, nondistended. EXTREMITIES: No cyanosis, or edema. NEUROLOGICAL: Awake, alert, and oriented x 3. Non-focal. A/P Problem List: (1) DKA (diabetic ketoacidoses) ICD Code: E13.10 - Other specified diabetes mellitus with ketoacidosis without coma Status: Acute (2) Dehydration ICD Code: E86.0 - Dehydration Status: Acute Assessment and Plan DKA (type 2 diabetes) Patient has responded well to IV insulin protocol Olivares cultures are thus far negative, chest x-ray was negative Consider sacral wound Continue with diabetic diet, Accu-Cheks with sliding scale insulin coverage Acute renal failure Resolved with IV fluid hydration and correction of DKA Hypertension Continue with metoprolol Lisinopril held due to acute kidney injury, may resume after discharge DVT prophylaxis Heparin Problem Qualifiers (1) DKA (diabetic ketoacidoses): Qualified Codes: E10.10 - Type 1 diabetes mellitus with ketoacidosis without coma Fred Funes MD Apr 26, 2017 15:45
[2017-04-26 16:28] LABS: AUTOMATED NEUTROPHIL # 3.1 TH/MM3 (1.8-7.7); BASOPHIL % 0.7 % (0.0-2.0); EOSINOPHIL # 0.1 TH/MM3 (0-0.4); EOSINOPHIL % 3.1 % (0.0-4.0); HEMATOCRIT 29.7 % (39.0-51.0); LYMPH % 25.1 % (9.0-44.0); LYMPHOCYTE # 1.2 TH/MM3 (1.0-4.8); MEAN CELL VOLUME 95.8 FL (80.0-100.0); MEAN CORPUSCULAR HEMOGLOBIN 32.4 PG (27.0-34.0); MEAN CORPUSCULAR HGB CONC 33.8 % (32.0-36.0); MEAN PLATELET VOLUME 8.2 FL (7.0-11.0); MONO % 4.1 % (0.0-8.0); MONOCYTE # 0.2 TH/MM3 (0-0.9); PLATELET COUNT 85 TH/MM3 (150-450); RED CELL DISTRIBUTION WIDTH 16.2 % (11.6-17.2)
[2017-04-26 16:53] LABS: BICARBONATE 25.2 MEQ/L (21.0-32.0); CALCIUM 7.5 MG/DL (8.5-10.1); CREATININE 0.79 MG/DL (0.60-1.30); MAGNESIUM 1.6 MG/DL (1.5-2.5)
[2017-04-26 16:56] LABS: PHOSPHORUS 1.5 MG/DL (2.5-4.9)
[2017-04-26 18:12] LABS: WHITE BLOOD COUNT 4.6 TH/MM3 (4.0-11.0)
[2017-04-27] VITALS: BP 112/73; PULSE 84; RESP 20; TEMP 97; O2SAT 98
[2017-04-27] MEDS: FAMOTIDINE 20 MG/2 ML VIAL IV PUSH SCH ×3 (00:05→23:37)
[2017-04-27] MEDS: traZODone HCL 50 MG TAB PO SCH ×2 (00:07→23:29)
[2017-04-27] MEDS: METOPROLOL TARTRATE 25 MG TAB PO SCH ×3 (00:07→23:29)
[2017-04-27] MEDS: DOCUSATE SODIUM 50 MG/SENNA 8.6 MG TAB PO SCH ×3 (00:07→21:00)
[2017-04-27 04:00] VITALS: BP 106/63; PULSE 66; RESP 18; TEMP 98.7; O2SAT 95
[2017-04-27] MEDS: CHLORHEXIDINE GLUCONATE 2 % 1 PACK (2 CLOTHS) TOP SCH (04:00)
[2017-04-27] MEDS: INSULIN ASPART SUPPLEMENTAL SCALE SQ SCH ×4 (08:00→23:31)
[2017-04-27 08:09] VITALS: BP 121/79; PULSE 65; RESP 20; TEMP 98; O2SAT 98
[2017-04-27] MEDS: INSULIN DETEMIR 100 UNITS/ML VIAL SQ SCH ×2 (09:00→23:31)
[2017-04-27] MEDS: COLLAGENASE OINT 30 GM TUBE TOPICAL SCH (09:32)
[2017-04-27] MEDS: GABAPENTIN 100 MG CAP PO SCH ×3 (09:55→18:00)
[2017-04-27] MEDS: ENOXAPARIN SODIUM 30 MG/0.3 ML SYRINGE SQ SCH ×2 (09:55→23:29)
[2017-04-27] MEDS: THIAMINE HCL 100 MG TAB PO SCH (09:56)
[2017-04-27] MEDS: ASPIRIN 325 MG TAB PO SCH (09:56)
[2017-04-27] MEDS: FOLIC ACID 1 MG TAB PO SCH (09:56)
--- NOTE | 2017-04-27 10:27 | PD.WOU.CON ---
Patient Intake Chief Complaint Buttock ulcer Consult Requested by Dr. Aranda Reason for Consult Patient with Buttock Ulcer, Type 2 Diabetes Primary Care Physician Jean-Claude Reed, DO History of Present Illness Patient seen today for evaluation of a buttock ulcer which she has had since of last year. He reports that he fell on his buttocks last year and since then has had this wound. He reports that he has been having wound care here at the hospital as well as home health wound care. Patient has a history of type 2 diabetes and reports that he was diagnosed with this 25 years ago. Coded Allergies: No Known Allergies (Verified Allergy, Unknown, 04/25/17) Vital Signs Date Time Temp Pulse Resp B/P (MAP) Pulse Ox O2 Delivery O2 Flow Rate FiO2 04/27/17 08:09 98.0 65 20 121/79 (93) 98 04/27/17 04:00 98.7 66 18 106/63 (77) 95 04/27/17 00:00 97.0 84 20 112/73 (86) 98 04/26/17 20:00 97.2 67 18 106/62 (77) 97 04/26/17 19:00 96 Room Air 04/26/17 18:00 63 04/26/17 16:00 63 04/26/17 16:00 98.3 63 14 128/79 (95) 94 04/26/17 14:00 61 04/26/17 12:00 60 04/26/17 12:00 98.2 60 15 106/67 (80) 96 Lab and Radiology Results Radiology Last Impressions Abdomen/Pelvis CT 04/25/17 4826 Signed Impressions: Service Date/Time: Tuesday, April 25, 2017 05:44 - CONCLUSION: Moderate amount of ascites in the abdomen and pelvis and tiny right pleural effusion. Suhail Yin MD Chest X-Ray 04/25/17 0333 Signed Impressions: Service Date/Time: Tuesday, April 25, 2017 04:01 - CONCLUSION: The lungs are clear. Suhail Yin MD Assessment/Plan Problem List: (1) Decubitus ulcer of buttock, unstageable (2) HTN (hypertension) Status: Acute (3) Diabetes Status: Acute (4) DKA (diabetic ketoacidoses) Status: Acute Problem Qualifiers (1) DKA (diabetic ketoacidoses): Qualified Codes: E10.10 - Type 1 diabetes mellitus with ketoacidosis without coma Brigitte Carlton MD Apr 27, 2017 10:27
--- NOTE | 2017-04-27 11:13 | PD.WCN.NOT ---
Wound Consult Description: Patient seen for wound care physician consult with Doctor Carlton today. Communicated with: TAMARA weaver, Doctor Carlton, and Doctor Fred Funes. Recommendation: 1. Reposition patient every 2 hours for comfort and offloading.Please do not use cotton underpads only UltraSorb moisture wicking. 2. Cleanse wound with normal saline only 3. Apply Santyl 2mm thick to wound base of sacrococcygeal wound making contact with all open tissue.( DO NOT USE WOUND CLEANSER WITH SANTYL) 4. Apply Calazime barrier cream to periwound 5. Cover with moisten gauze, dry gauze and secure with ABD pad secured with medfix tape change dressing daily or as needed for dislodgement/exudate. 6. Please apply skin barrier film (skin prep) to intact skin before securing dressing with tape. 7. Follow up with out patient wound center. 8. Please encourage and assist patient to turn and reposition patient every 2 hours and PRN for comfort and offloading of pressure from bhupinder prominences. Additional Information: Patient seen on for wound care physician consult with Doctor Carlton. Patient was also seen with TAMARA weaver, TAMARA weaver and commercial lines underwriter. Patient was able to turn self with minimal assistance to R side. Removed dressing of ABD pad, gauze pad in place to reveal open wound to Sacrococcygeal area. Wound measures 10cm x 8.8cm x slough. Wound presents with ~50% yellow adherent slough,~10 % adipose tissue, and ~40% red granulation tissue. Wound bed dry with scant sero-sanguinous drainage.Wound was debrided with Curette by doctor Carlton at bedside. Wound was then cleansed with normal saline and patted dry. Applied skin barrier film to periwound. Applied Santyl to saline moistened gauze pads and applied just over wound bed. Covered wound with dry 4x4 gauze pads, and ABD pad. Secured dressing with medfix tape. Latoya [facility]z [facility] Apr 27, 2017 11:13
--- NOTE | 2017-04-27 16:35 | HHI.PR ---
Subjective Remarks Patient underwent debridement of the sacral decubitus today and had some pain following. He is stable from a DKA standpoint. He denies any nausea or vomiting, denies fever. Objective Vitals Vital Signs Date Time Temp Pulse Resp B/P (MAP) Pulse Ox O2 Delivery O2 Flow Rate FiO2 04/27/17 08:09 98.0 65 20 121/79 (93) 98 04/27/17 04:00 98.7 66 18 106/63 (77) 95 04/27/17 00:00 97.0 84 20 112/73 (86) 98 04/26/17 20:00 97.2 67 18 106/62 (77) 97 04/26/17 19:00 96 Room Air 04/26/17 18:00 63 I/O 04/26/17 04/26/17 04/26/17 04/27/17 04/27/17 04/27/17 07:00 15:00 23:00 07:00 15:00 23:00 Intake Total 240 ml 633 ml 760 ml Output Total 700 ml 475 ml 750 ml Balance -460 ml 633 ml 285 ml -750 ml Intake Oral 240 ml 760 ml IV Total 633 ml Output Urine Total 700 ml 475 ml 750 ml # Bowel Movements 0 0 Result Diagram: 04/26/17 1526 04/26/17 1526 Objective Remarks GENERAL: Well-nourished, well-developed patient. SKIN: Sacral wound examined by wound care nurse HEAD: Normocephalic. EYES: No scleral icterus. No injection or drainage. NECK: Supple, trachea midline. No JVD or lymphadenopathy. CARDIOVASCULAR: Regular rate and rhythm without murmurs, gallops, or rubs. RESPIRATORY: Breath sounds equal bilaterally. No accessory muscle use. GASTROINTESTINAL: Abdomen soft, non-tender, nondistended. EXTREMITIES: No cyanosis, or edema. NEUROLOGICAL: Awake, alert, and oriented x 3. Non-focal. A/P Problem List: (1) DKA (diabetic ketoacidoses) ICD Code: E13.10 - Other specified diabetes mellitus with ketoacidosis without coma Status: Acute (2) Dehydration ICD Code: E86.0 - Dehydration Status: Acute Assessment and Plan Sacral decubitus Wound is currently unstageable, lacking epidermal layer Positioning on side recommended, dressing was placed Wound care follow-up as outpatient in 1 week Appreciate wound care consult DKA (type 2 diabetes) Blood sugars are now stable with regular sliding scale Olivares cultures are negative 2 days, chest x-ray was negative Continue with diabetic diet, Accu-Cheks with sliding scale insulin coverage Acute renal failure Resolved with IV fluid hydration and correction of DKA Hypertension Continue with metoprolol Lisinopril held due to acute kidney injury, may resume after discharge DVT prophylaxis Heparin Discharge planning Patient came to us from rehab center, likely discharge tomorrow Problem Qualifiers (1) DKA (diabetic ketoacidoses): Qualified Codes: E10.10 - Type 1 diabetes mellitus with ketoacidosis without coma Fred Funes MD Apr 27, 2017 16:35
[2017-04-27 20:14] VITALS: BP 147/83; PULSE 88; RESP 17; TEMP 98.1; O2SAT 97
[2017-04-28] MEDS: CHLORHEXIDINE GLUCONATE 2 % 1 PACK (2 CLOTHS) TOP SCH (04:00)
[2017-04-28 08:00] VITALS: BP 141/70; PULSE 77; RESP 18; TEMP 98.2; O2SAT 98
[2017-04-28] MEDS: INSULIN ASPART SUPPLEMENTAL SCALE SQ SCH ×2 (08:00→12:00)
[2017-04-28] MEDS: COLLAGENASE OINT 30 GM TUBE TOPICAL SCH (09:00)
[2017-04-28] MEDS: INSULIN DETEMIR 100 UNITS/ML VIAL SQ SCH (09:00)
[2017-04-28] MEDS ORDERED: PERI PO (09:34)
--- NOTE | 2017-04-28 09:40 | HHI.DS ---
Discharge Summary Admission Date Apr 25, 2017 at 05:15 Discharge Date: Apr 28, 2017 Admitting Diagnosis DKA, leukocytosis (1) DKA (diabetic ketoacidoses) ICD Code: E13.10 - Other specified diabetes mellitus with ketoacidosis without coma Status: Acute (2) Dehydration ICD Code: E86.0 - Dehydration Status: Acute Procedures Sacral wound debridement with wound care physician Brief History - From Admission 67 year old male presents with a history altered mentation noted at 2 AM by the retirement staff when they went to check his blood sugar. The patient's blood sugar was noted to be critically high. They administered 10 units of insulin subcutaneously and called the physician section leader and machine setter. Given the patient's altered mentation he recommended that the patient be taken to the emergency department. Upon ambulance services arrival the patient was noted to be tachypneic with a critically high blood sugar. The patient was noted to have an end-tidal CO2 between 8 and 10. The patient's heart rate was noted to be 280 and he appeared to be and ventricular tachycardia. The patient spontaneously converted to a sinus rhythm. The patient continues to be altered. The initial workup in the emergency department show severe DKA and the patient is admitted to ICU. CBC/BMP: 04/26/17 1526 04/26/17 1526 Significant Findings Laboratory Tests Test 04/25/17 10:00 04/25/17 10:40 04/25/17 12:10 04/25/17 15:46 Lactic Acid Level 5.2 mmol/L (0.4-2.0) Blood Urea Nitrogen 22 MG/DL (7-18) 20 MG/DL (7-18) Creatinine 1.65 MG/DL (0.60-1.30) Random Glucose 354 MG/DL (74-106) 143 MG/DL (74-106) Calcium Level 8.3 MG/DL (8.5-10.1) 7.5 MG/DL (8.5-10.1) Phosphorus Level 2.1 MG/DL (2.5-4.9) 1.5 MG/DL (2.5-4.9) Estimat Glomerular Filtration Rate 42 ML/MIN (>89) 60 ML/MIN (>89) Troponin I 0.28 NG/ML (0.02-0.05) Chloride Level 108 MEQ/L (98-107) Hemoglobin A1c 6.4 % (4.3-6.0) Test 04/25/17 23:16 04/26/17 05:31 04/26/17 15:26 Blood Urea Nitrogen 20 MG/DL (7-18) 19 MG/DL (7-18) Random Glucose 277 MG/DL (74-106) 138 MG/DL (74-106) Calcium Level 7.9 MG/DL (8.5-10.1) 7.5 MG/DL (8.5-10.1) 7.5 MG/DL (8.5-10.1) Phosphorus Level 1.8 MG/DL (2.5-4.9) 1.6 MG/DL (2.5-4.9) 1.5 MG/DL (2.5-4.9) Carbon Dioxide Level 18.7 MEQ/L (21.0-32.0) Estimat Glomerular Filtration Rate 67 ML/MIN (>89) 67 ML/MIN (>89) Prothrombin Time 13.6 SEC (9.8-11.6) Total Protein 4.4 GM/DL (6.4-8.2) Albumin 1.8 GM/DL (3.4-5.0) Chloride Level 108 MEQ/L (98-107) 108 MEQ/L (98-107) Red Blood Count 3.10 MIL/MM3 (4.50-5.90) Hemoglobin 10.0 GM/DL (13.0-17.0) Hematocrit 29.7 % (39.0-51.0) Platelet Count 85 TH/MM3 (150-450) Platelet Estimate LOW (NORMAL) PE at Discharge GENERAL: Well-nourished, well-developed patient. SKIN: Sacral wound examined by wound care nurse HEAD: Normocephalic. EYES: No scleral icterus. No injection or drainage. NECK: Supple, trachea midline. No JVD or lymphadenopathy. CARDIOVASCULAR: Regular rate and rhythm without murmurs, gallops, or rubs. RESPIRATORY: Breath sounds equal bilaterally. No accessory muscle use. GASTROINTESTINAL: Abdomen soft, non-tender, nondistended. EXTREMITIES: No cyanosis, or edema. NEUROLOGICAL: Awake, alert, and oriented x 3. Non-focal. Hospital Course 67M with h/o DM2 who presented to the ER in DKA, blood sugars into the 700's. He responded well to DKA protocol and had resolution of his symptoms within 12 hours, indicating early stage DKA. Work up to reveal exacerbating issues found a decubitus sacral ulceration that was evaluated by wound care physician during this stay. He has follow up arranged for ongoing wound care debridement. He has remained well controlled from a blood sugar standpoint and came to us from a SNF-Rehab where he is stable to return to today. Pt Condition on Discharge: Good Discharge Disposition: Discharge to SNF Discharge Time: <= 30 minutes Discharge Instructions DIET: Follow Instructions for: Diabetic Diet Activities you can perform: Weight Bearing as Fred Roque MD Apr 28, 2017 09:40
[2017-04-28] MEDS: DOCUSATE SODIUM 50 MG/SENNA 8.6 MG TAB PO SCH (10:27)
[2017-04-28] MEDS: THIAMINE HCL 100 MG TAB PO SCH (10:27)
[2017-04-28] MEDS: FOLIC ACID 1 MG TAB PO SCH (10:28)
[2017-04-28] MEDS: ASPIRIN 325 MG TAB PO SCH (10:28)
[2017-04-28] MEDS: METOPROLOL TARTRATE 25 MG TAB PO SCH (10:28)
[2017-04-28] MEDS: GABAPENTIN 100 MG CAP PO SCH ×2 (10:28→13:00)
[2017-04-28] MEDS: FAMOTIDINE 20 MG/2 ML VIAL IV PUSH SCH (10:30)
[2017-04-28] MEDS: ENOXAPARIN SODIUM 30 MG/0.3 ML SYRINGE SQ SCH (10:30)
[2017-04-28 12:29] VITALS: BP 136/74; PULSE 75; RESP 18; TEMP 97.8; O2SAT 98
== END 2017-04-28 17:02 | DRG 623 ==
LOC: NEPC 03:20 → MERGE 05:15 → NEDA 05:15 → N03B 08:21 → N05B 04-26 20:20
PROVIDERS: ADMIT Family Medicine; ATTEND Family Medicine
PROC: 0JB70ZZ Excision of Back Subcutaneous Tissue and Fascia, Open Approach (ICD-10-PCS; principal; 2017-04-27)
DX: E11.10 Type 2 diabetes mellitus with ketoacidosis without coma (principal); N17.9 Acute kidney failure, unspecified; L89.150 Pressure ulcer of sacral region, unstageable; Z79.4 Long term (current) use of insulin; Z79.84 Long term (current) use of oral hypoglycemic drugs; E86.0 Dehydration; I10 Essential (primary) hypertension; Z79.82 Long term (current) use of aspirin
CPT/HCPCS: 51702; 71045; 74176; 80048; 80053; 81001; 82010; 82550; 82552; 82800; 82805; 82948; 83036; 83605; 83735; 83880; 84100; 84484; 85025; 85610; 85730; 86403; 87040; 87070; 87086; 87205; 87641; 93005; 96361; 96374; 96375; J0610; J1650; J1815; J1817; J2270; J2405; J2543; J3370; J3480; J7030; J7042; J7050

== ENCOUNTER 2017-05-01 18:06 | Emergency (ER) | payer MEDICARE ==
[~2017-05-01 18:06] MED LIST changes: -ASPI325T PO; -DOCU1CAP39 PO; +PERI PO; -POLY119S PO
[2017-05-01 18:37] VITALS: BP 168/95; PULSE 83; RESP 15; TEMP 99.3; O2SAT 96
[2017-05-01] MEDS: SODIUM CHLOR 0.9% 1000 ML INJ 1,000 ML IV SCH ×2 (19:03→21:57)
--- NOTE | 2017-05-01 19:14 | PD ---
HPI Chief Complaint: Abdominal Pain Time Seen by Provider: 18:58 Travel History International Travel<30 days: No Contact w/Intl Traveler<30days: No Traveled to known affect area: No History of Present Illness HPI The patient is a 67-year-old male who presents to the emergency department for abdominal pain and indigestion. The patient was recently hospitalized for DKA. He was discharged back to the facility, however, earlier today he developed abdominal pain. Abdominal pain is generalized, diffuse, moderate, and associated with indigestion. He denies any nausea or vomiting, was able to tolerate a small amount of lunch. He denies any diarrhea. He denies any fever, chills, or sweats. He denies any associated dysuria. He denies any previous abdominal surgeries. The patient denies any known history of cholelithiasis, pancreatitis, or nephrolithiasis. 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) Hypertension: Yes Immune Disorder: No Implanted Vascular Access Dvce: No Musculoskeletal: No Neurologic: No Psychiatric: Yes (bipolar) Reproductive: No Respiratory: No Immunizations Current: Yes Thyroid Disease: No Past Surgical History Abdominal Surgery: No Appendectomy: No Cardiac Surgery: No Cholecystectomy: No Ear Surgery: No Endocrine Surgery: No Eye Surgery: No Genitourinary Surgery: No Gynecologic Surgery: No Joint Replacement: Yes (LEFT KNEE) Neurologic Surgery: No Oral Surgery: No Pacemaker: No Thoracic Surgery: No Other Surgery: Yes (femur fx hx) Social History Alcohol Use: Yes (occas) Tobacco Use: No Substance Use: Yes (marijuana) Allergies-Medications (Allergen,Severity, Reaction): Coded Allergies: No Known Allergies (Verified Allergy, Unknown, 05/01/17) Reported Meds & Prescriptions Reported Meds & Active Scripts Active Gnp Senna Plus 8.6-50 mg (Sennosides-Docusate Sodium) 8.6 Mg-50 Mg Tab 1 Tab PO BID PRN 30 Days [employer] 5-325 mg (Hydrocodone-Acetaminophen 5-325 mg) 1 Tab 1 Tab PO Q8 PRN Trazodone Hcl (Trazodone HCl) 50 Mg Tab 50 Mg PO HS Abilify 20 mg (Aripiprazole) 20 Mg Tab 20 Mg PO HS 30 Days Metoprolol Tartrate 25 mg (Metoprolol Tartrate) 25 Mg Tab 25 Mg PO Q12HR 30 Days Lovenox (Enoxaparin Sodium) 30 Mg/0.3 Ml Inj 30 Mg SQ Q12H 30 Days Reported Glucophage 500 mg (Metformin HCl) 500 Mg Tab 500 Mg PO BIDPC Mapap (Acetaminophen) 325 Mg Tab 650 Mg PO Q6H PRN Thiamine HCl 100 Mg Tab 100 Mg PO DAILY Lisinopril 5 mg (Lisinopril) 5 Mg Tab 5 Mg PO BID Humalog Insulin Supplemental Scale (Insulin Human Lispro) 100 Units/Ml Inj Unknown Dose SQ TIDACHS Low Dose Lispro Insulin Sliding Scale = Max dose at bedtime:( )units; Max dose at 3am:( ); blood sugars less than 70 take zero insulin units; blood sugars 150-199 take 1 unit; blood sugars 200-249 take 3 units; blood sugars 250-299 take 5 units; blood sugars 300-349 take 7 units; blood sugars greater than 349 take 9 units Lantus (Insulin Glargine) 100 Units/Ml Inj 27 Unit SQ DAILY Gabapentin 100 Mg Cap 200 Mg PO TID Folate 1 Mg Tab (Folic Acid) 1 Mg Tab 1 Mg PO DAILY Review of Systems Except as stated in HPI: all other systems reviewed are Neg General / Constitutional: No: Fever Cardiovascular: No: Chest Pain or Discomfort Respiratory: No: Shortness of Breath Gastrointestinal: Positive: Abdominal Pain, Indigestion, No: Nausea, Vomiting, Diarrhea Genitourinary: No: Dysuria Physical Exam Narrative GENERAL: Awake, alert, pleasant 67-year-old male who appears his stated age and is in no acute respiratory distress. SKIN: Focused skin assessment warm/dry. HEAD: Atraumatic. Normocephalic. EYES: Pupils equal and round. No scleral icterus. No injection or drainage. ENT: No nasal bleeding or discharge. Dry mucous membranes. NECK: Trachea midline. No JVD. CARDIOVASCULAR: Regular rate and rhythm. No murmur appreciated. Heart rate in the 80s. RESPIRATORY: No accessory muscle use. Clear to auscultation. Breath sounds equal bilaterally. GASTROINTESTINAL: Abdomen soft, diffusely tender. Ecchymosis noted on the lower abdomen bilaterally. MUSCULOSKELETAL: No obvious deformities. No clubbing. No cyanosis. No edema. NEUROLOGICAL: Awake and alert. No obvious cranial nerve deficits. Motor grossly within normal limits. Normal speech. PSYCHIATRIC: Appropriate mood and affect; insight and judgment normal. Data Data Last Documented VS Vital Signs Date Time Temp Pulse Resp B/P (MAP) Pulse Ox O2 Delivery O2 Flow Rate FiO2 05/01/17 22:29 78 20 165/89 (114) 99 05/01/17 19:28 Room Air 05/01/17 18:37 99.3 Orders Orders Complete Blood Count With Diff (05/01/17 19:03) Comprehensive Metabolic Panel (05/01/17 19:03) Lipase (05/01/17 19:03) Lactic Acid (05/01/17 19:03) Prothrombin Time / Inr (Pt) (05/01/17 19:03) Act Partial Throm Time (Ptt) (05/01/17 19:03) Ct Abd/Pel W Iv Contrast(Rout) (05/01/17 19:03) Iv Access Insert/Monitor (05/01/17 19:03) Ecg Monitoring (05/01/17 19:03) Oximetry (05/01/17 19:03) Morphine Inj (Morphine Inj) (05/01/17 19:15) Ondansetron Inj (Zofran Inj) (05/01/17 19:15) Sodium Chlor 0.9% 1000 Ml Inj (Ns 1000 M (05/01/17 19:03) Sodium Chloride 0.9% Flush (Ns Flush) (05/01/17 19:15) Electrocardiogram (05/01/17 19:03) Famotidine Inj (Pepcid Inj) (05/01/17 19:15) Sodium Chlor 0.9% 1000 Ml Inj (Ns 1000 M (05/01/17 20:45) Iohexol 350 Inj (Omnipaque 350 Inj) (05/01/17 21:00) Labs Laboratory Tests Test 05/01/17 19:10 White Blood Count 3.4 TH/MM3 Red Blood Count 3.60 MIL/MM3 Hemoglobin 11.7 GM/DL Hematocrit 34.4 % Mean Corpuscular Volume 95.5 FL Mean Corpuscular Hemoglobin 32.6 PG Mean Corpuscular Hemoglobin Concent 34.1 % Red Cell Distribution Width 16.8 % Platelet Count 94 TH/MM3 Mean Platelet Volume 8.5 FL Neutrophils (%) (Auto) 65.3 % Lymphocytes (%) (Auto) 21.0 % Monocytes (%) (Auto) 10.3 % Eosinophils (%) (Auto) 2.5 % Basophils (%) (Auto) 0.9 % Neutrophils # (Auto) 2.2 TH/MM3 Lymphocytes # (Auto) 0.7 TH/MM3 Monocytes # (Auto) 0.3 TH/MM3 Eosinophils # (Auto) 0.1 TH/MM3 Basophils # (Auto) 0.0 TH/MM3 CBC Comment AUTO DIFF Differential Comment AUTO DIFF CONFIRMED Platelet Estimate LOW Platelet Morphology Comment NORMAL Spherocytes OCC Acanthocytes OCC Prothrombin Time 10.6 SEC Prothromb Time International Ratio 1.0 RATIO Activated Partial Thromboplast Time 25.4 SEC Blood Urea Nitrogen 5 MG/DL Creatinine 0.79 MG/DL Random Glucose 176 MG/DL Total Protein 6.1 GM/DL Albumin 2.6 GM/DL Calcium Level 8.7 MG/DL Alkaline Phosphatase 143 U/L Aspartate Amino Transf (AST/SGOT) 97 U/L Alanine Aminotransferase (ALT/SGPT) 81 U/L Total Bilirubin 0.7 MG/DL Sodium Level 135 MEQ/L Potassium Level 4.3 MEQ/L Chloride Level 99 MEQ/L Carbon Dioxide Level 31.8 MEQ/L Anion Gap 4 MEQ/L Estimat Glomerular Filtration Rate 98 ML/MIN Lactic Acid Level 2.4 mmol/L Lipase 81 U/L MDM Medical Decision Making Medical Screen Exam Complete: Yes Emergency Medical Condition: Yes Medical Record Reviewed: Yes Interpretation(s) EKG reveals normal sinus rhythm with a rate 84. Low QRS voltage in extremity leads. Laboratory Tests Test 05/01/17 19:10 White Blood Count 3.4 TH/MM3 Red Blood Count 3.60 MIL/MM3 Hemoglobin 11.7 GM/DL Hematocrit 34.4 % Mean Corpuscular Volume 95.5 FL Mean Corpuscular Hemoglobin 32.6 PG Mean Corpuscular Hemoglobin Concent 34.1 % Red Cell Distribution Width 16.8 % Platelet Count 94 TH/MM3 Mean Platelet Volume 8.5 FL Neutrophils (%) (Auto) 65.3 % Lymphocytes (%) (Auto) 21.0 % Monocytes (%) (Auto) 10.3 % Eosinophils (%) (Auto) 2.5 % Basophils (%) (Auto) 0.9 % Neutrophils # (Auto) 2.2 TH/MM3 Lymphocytes # (Auto) 0.7 TH/MM3 Monocytes # (Auto) 0.3 TH/MM3 Eosinophils # (Auto) 0.1 TH/MM3 Basophils # (Auto) 0.0 TH/MM3 CBC Comment AUTO DIFF Differential Comment AUTO DIFF CONFIRMED Platelet Estimate LOW Platelet Morphology Comment NORMAL Spherocytes OCC Acanthocytes OCC Prothrombin Time 10.6 SEC Prothromb Time International Ratio 1.0 RATIO Activated Partial Thromboplast Time 25.4 SEC Blood Urea Nitrogen 5 MG/DL Creatinine 0.79 MG/DL Random Glucose 176 MG/DL Total Protein 6.1 GM/DL Albumin 2.6 GM/DL Calcium Level 8.7 MG/DL Alkaline Phosphatase 143 U/L Aspartate Amino Transf (AST/SGOT) 97 U/L Alanine Aminotransferase (ALT/SGPT) 81 U/L Total Bilirubin 0.7 MG/DL Sodium Level 135 MEQ/L Potassium Level 4.3 MEQ/L Chloride Level 99 MEQ/L Carbon Dioxide Level 31.8 MEQ/L Anion Gap 4 MEQ/L Estimat Glomerular Filtration Rate 98 ML/MIN Lactic Acid Level 2.4 mmol/L Lipase 81 U/L Differential Diagnosis Differential diagnosis includes GERD, esophageal spasm, pancreatitis, peptic ulcer disease, ileus, small bowel obstruction, cholelithiasis, DKA, dehydration. Narrative Course IV was established, labs are drawn and sent, and the patient was placed on cardiac telemetry monitoring and continuous pulse oximetry monitoring. EKG was ordered and interpreted. Patient was administered morphine, Zofran, Pepcid, and IV fluids. CT of the abdomen and pelvis with IV contrast was obtained. I reviewed the EMR, previous CT revealed moderate ascites within the abdomen. Patient's albumin was low at 2.6, LFTs were mildly elevated. The patient's white count is mildly low today, 3.4, patient is afebrile, no temperature above 100.4, however, did have a temperature 99.3. I reviewed the EMR, no previous evidence of spontaneous bacterial peritonitis. The patient was reevaluated at 10 PM, his symptoms have significantly improved. The patient lives in [place] with another gentleman, states he does not have a ride home tonight. The patient does not meet observation or admission criteria, after discussion it was agreed we would have case management evaluate the patient to see if there is a way we could transport the patient home. Diagnosis Primary Impression: Abdominal pain Qualified Codes: R10.84 - Generalized abdominal pain Additional Impression: Ascites Qualified Codes: R18.8 - Other ascites Patient Instructions: General Instructions Additional Instructions: Please provide the patient a copy of his labs and CT results at discharge. Case management to arrange transportation back to custodial. Return if symptoms worsen or progress. Med/Other Pt SpecificInfo: No Change to Meds Disposition: 01 DISCHARGE HOME Condition: Stable Stefan Berger MD May 01, 2017 19:14
[2017-05-01] MEDS ORDERED: ONDANSETRON HCL 4 MG/2 ML VIAL IVP ONE (19:15)
[2017-05-01] MEDS ORDERED: FAMOTIDINE 20 MG/2 ML VIAL IV PUSH ONE (19:15)
[2017-05-01] MEDS ORDERED: MORPHINE SULFATE 4 MG/ML INJ IV PUSH ONE (19:15)
[2017-05-01 19:28] VITALS: RESP 20; O2SAT 98
[2017-05-01 19:51] LABS: AUTOMATED NEUTROPHIL # 2.2 TH/MM3 (1.8-7.7); BASOPHIL % 0.9 % (0.0-2.0); EOSINOPHIL # 0.1 TH/MM3 (0-0.4); EOSINOPHIL % 2.5 % (0.0-4.0); HEMATOCRIT 34.4 % (39.0-51.0); HEMOGLOBIN 11.7 GM/DL (13.0-17.0); LYMPHOCYTE # 0.7 TH/MM3 (1.0-4.8); MEAN CELL VOLUME 95.5 FL (80.0-100.0); MEAN CORPUSCULAR HEMOGLOBIN 32.6 PG (27.0-34.0); MEAN CORPUSCULAR HGB CONC 34.1 % (32.0-36.0); MEAN PLATELET VOLUME 8.5 FL (7.0-11.0); MONO % 10.3 % (0.0-8.0); MONOCYTE # 0.3 TH/MM3 (0-0.9); NEUT % 65.3 % (16.0-70.0); PLATELET COUNT 94 TH/MM3 (150-450); RED CELL DISTRIBUTION WIDTH 16.8 % (11.6-17.2); WHITE BLOOD COUNT 3.4 TH/MM3 (4.0-11.0)
[2017-05-01 20:11] LABS: ALBUMIN 2.6 GM/DL (3.4-5.0); AST (GOT) 97 U/L (15-37); BICARBONATE 31.8 MEQ/L (21.0-32.0); BLOOD UREA NITROGEN 5 MG/DL (7-18); CALCIUM 8.7 MG/DL (8.5-10.1); CHLORIDE 99 MEQ/L (98-107); CREATININE 0.79 MG/DL (0.60-1.30); GLOMERULAR FILTRATION RATE 98 ML/MIN (>89); GLUCOSE,RANDOM 176 MG/DL (74-106); PROTHROMBIN TIME - PATIENT 10.6 SEC (9.8-11.6); SODIUM (NA) 135 MEQ/L (136-145)
[2017-05-01 20:12] LABS: ALT (GPT) 81 U/L (12-78)
[2017-05-01 20:14] LABS: ALKALINE PHOSPHATASE 143 U/L (45-117); TOTAL BILIRUBIN ADULT 0.7 MG/DL (0.2-1.0); TOTAL PROTEIN 6.1 GM/DL (6.4-8.2)
[2017-05-01 20:31] LABS: SPHEROCYTES OCC (NORMAL)
[2017-05-01 20:32] LABS: ACANTHOCYTES OCC (NORMAL)
[2017-05-01] MEDS ORDERED: SODIUM CHLOR 0.9% 1000 ML INJ 1,000 ML IV ONE (20:45)
[2017-05-01] MEDS ORDERED: IOHEXOL 350 MG/ML 10 ML VIAL (for RAD DIAG) IVCONTRAST ONE (21:00)
[2017-05-01 21:26] VITALS: RESP 20
--- NOTE | 2017-05-01 21:49 | RADRPT ---
EXAM DATE/TIME: 05/01/2017 20:56 [place] COMPARISON: No previous studies available for comparison. INDICATIONS : Diffuse abdomen pain today. IV CONTRAST: 95 cc Omnipaque 350 (iohexol) IV ORAL CONTRAST: No oral contrast ingested. RADIATION DOSE: 11.03 CTDIvol (mGy) MEDICAL HISTORY : Hepatitis C. Hypertension. diabetes SURGICAL HISTORY : None. ENCOUNTER: Initial ACUITY: 1 day PAIN SCALE: 6/10 LOCATION: Bilateral abdomen TECHNIQUE: Volumetric scanning of the abdomen and pelvis was performed. Using automated exposure control and ad justment of the mA and/or kV according to patient size, radiation dose was kept as low as reasonably achievable to obtain optimal diagnostic quality images. DICOM format image data is available electro nically for review and comparison. FINDINGS: Lung bases demonstrate minimal dependent atelectasis. Trace right pleural fluid. There is liver cirrhosis. Spleen is enlarged measuring up to 15.5 cm in length. There is moderate asc ites. 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 Also mild coccygeal varices. No bowel obstruction. No free air. CONCLUSION: 1. Moderate ascites, liver cirrhosis, splenomegaly and varices similar to April 25. Mild anasarca. No new findings. Franc Estrada MD on May 01, 2017 at 21:44 Board Certified Radiologist. This report was verified electronically.
[2017-05-01] MEDS: SODIUM CHLORIDE 0.9% FLUSH 10 ML FLUSH IV FLUSH PRN (22:15)
[2017-05-01 22:29] VITALS: BP 165/89
--- NOTE | 2017-05-02 15:45 | EKG ---
Date Performed: 05/01/2017 Time Performed: 20:19:18 PTAGE: 67 years EKG: Sinus rhythm LOW QRS VOLTAGE IN EXTREMITY LEADS BORDERLINE ECG Since the PREVIOUS TRACING , no significant change noted PREVIOUS TRACIN04/25/2017 12.44 DOCTOR: Miles Koch Interpretating Date/Time 05/02/2017 15:41:47
== END 2017-05-01 22:49 | disposition home or self-care (01) ==
LOC: NEPC 18:06 → MERGE 18:06 → NEPC 22:49
DX: R10.84 Generalized abdominal pain (principal); R18.8 Other ascites; F12.90 Cannabis use, unspecified, uncomplicated; E11.9 Type 2 diabetes mellitus without complications; Z79.4 Long term (current) use of insulin
CPT/HCPCS: 74177; 80053; 83605; 83690; 85025; 85610; 85730; 93005; 96361; 96374; 96375; 99285; J2270; J2405; J7030; Q9967